=== PATIENT | female | born 1960 | race Caucasian/White ===

== ENCOUNTER → 2016-12-01 | Outpatient (CLI) | payer BC ==
[~2016-12-01] MED LIST: BUSPAR DIVIDOSE15 MG PO; BUSPAR10 MG PO; BYSTOLIC5 MG PO; CLARITIN 1010 MG/TAB PO; DIOVAN 40MG40 MG PO; FLEXERIL 1010 MG/TAB PO; FLEXERIL5 MG PO; MOTRIN 200200 MG/TAB PO; MOTRIN 600600 MG/TAB PO; MOTRIN 800800 MG/TAB PO; NORCO 325 MG-51 TAB PO; PROZAC 10MG10 MG PO; PROZAC 20MG20 MG PO; SARAFEM15 MG PO
== END ==
LOC: MC.RAD 15:43
DX: Z12.31 Encounter for screening mammogram for malignant neoplasm of breast (principal)

== ENCOUNTER 2017-03-17 13:53 | Emergency (ER) | payer BC ==
[~2017-03-17] VITALS: Ht 157.5 cm; Wt 59.1 kg
[~2017-03-17 13:53] MED LIST changes: -DIOVAN 40MG40 MG PO; -MOTRIN 600600 MG/TAB PO
[2017-03-17 14:00] VITALS: TEMP 98.4
[2017-03-17] MEDS ORDERED: DIOVAN 40MG40 MG PO (14:33)
[2017-03-17] MEDS ORDERED: MOTRIN 600600 MG/TAB PO (14:34)
[2017-03-17] MEDS ORDERED: NORCO 325 MG-51 TAB PO (17:43)
[2017-03-17 18:33] LABS: BASO % 0.5 % (0.0-2.0); EOS % 0.3 % (0-4.0); GRAN # 5.5 (1.4-6.5); GRAN % 69.2 % (42.2-75.2); HEMATOCRIT 39.8 % (37.0-47.0); HEMOGLOBIN 14.7 g/dl (12.5-16.0); LYMPH # 1.6 (1.2-3.4); LYMPH % 19.8 % (20.0-51.0); MEAN CELL VOLUME 97 fl (80.0-100.0); MEAN CORPUSCULAR HEMOGLOBIN 36 pg (27.0-31.0); MEAN CORPUSCULAR HGB CONC 37 g/dl (33.0-37.0); MEAN PLATELET VOLUME 9.3 fl (7.4-10.4); MONO # 0.8 (0.1-0.6); MONO % 9.8 % (1.7-9.3); PLATELET COUNT 240 K/mm3 (130-400); REDCELL DISTRIBUTION WIDTH-CV 11.8 % (11.5-14.5); WHITE BLOOD COUNT 7.9 K/mm3 (4.8-10.8)
[2017-03-17 18:40] VITALS: BP 128/64; PULSE 68
[2017-03-17 18:47] LABS: CALCIUM 8.6 mg/dL (8.4-10.2); CREATININE, serum 0.55 mg/dL (0.52-1.25); POTASSIUM 4.7 mmol/L (3.4-5.0)
== END 2017-03-17 18:40 | disposition home or self-care (01) ==
LOC: COL.ER 13:53
PROVIDERS: Emergency Medicine
DX: S52.592A Other fractures of lower end of left radius, initial encounter for closed fracture (principal); I10 Essential (primary) hypertension; F32.9 Major depressive disorder, single episode, unspecified; F41.9 Anxiety disorder, unspecified; W01.198A Fall on same level from slipping, tripping and stumbling with subsequent striking against other object, initial encounter; Y92.008 Other place in unspecified non-institutional (private) residence as the place of occurrence of the external cause; S29.9XXA Unspecified injury of thorax, initial encounter; R42 Dizziness and giddiness
CPT/HCPCS: J1170; J1885; J2405; J7030

== ENCOUNTER 2017-03-18 07:37 | Day surgery (SDC) | payer BC ==
[~2017-03-18] VITALS: Ht 157.5 cm; Wt 60.5 kg
[2017-03-18] VITALS (10 sets, daily range): BP systolic 89–131; BP diastolic 52–69; PULSE 63–76; TEMP 97.3–98
[~2017-03-18 07:37] MED LIST changes: +DIOVAN 40MG40 MG PO; +MOTRIN 600600 MG/TAB PO
[2017-03-18 09:21] LABS: ADJUSTED CALCIUM 8.7 mg/dL (8.4-10.2); ALBUMIN 4.1 gm/dL (3.5-5.0); BILIRUBIN,TOTAL 1.2 mg/dL (0.0-1.0); CALCIUM 8.8 mg/dL (8.4-10.2); CREATININE, serum 0.57 mg/dL (0.52-1.25)
[2017-03-18 09:37] LABS: HEMOGLOBIN 14.1 g/dl (12.5-16.0); MEAN CELL VOLUME 99 fl (80.0-100.0); MEAN CORPUSCULAR HEMOGLOBIN 35 pg (27.0-31.0); MEAN CORPUSCULAR HGB CONC 35 g/dl (33.0-37.0); RED BLOOD COUNT 4.03 M/mm3 (4.10-5.30); REDCELL DISTRIBUTION WIDTH-CV 11.9 % (11.5-14.5)
[2017-03-18 09:39] LABS: MEAN PLATELET VOLUME 10.3 fl (7.4-10.4); PLATELET COUNT 209 K/mm3 (130-400)
== END 2017-03-18 16:50 | disposition home or self-care (01) ==
LOC: SDCO 07:37 → SURG 07:37 → SDCO 16:50
PROVIDERS: Orthopaedic Surgery
DX: S52.502A Unspecified fracture of the lower end of left radius, initial encounter for closed fracture (principal); W01.0XXA Fall on same level from slipping, tripping and stumbling without subsequent striking against object, initial encounter; Y93.K1 Activity, walking an animal; I10 Essential (primary) hypertension; F41.8 Other specified anxiety disorders; F17.210 Nicotine dependence, cigarettes, uncomplicated
CPT/HCPCS: OP; C1713; J0670; J0690; J2250; J2405; J2704; J3010; J7120

== ENCOUNTER 2017-07-11 14:43 | Emergency (ER) | payer SELFPAY ==
[~2017-07-11] VITALS: Ht 157.5 cm; Wt 59.1 kg
[2017-07-11 14:45] VITALS: TEMP 98.3
[2017-07-11] MEDS ORDERED: NORVASC 5MG5 MG/TAB PO (16:41)
[2017-07-11 16:45] VITALS: BP 201/96; PULSE 69
== END 2017-07-11 16:50 | disposition home or self-care (01) ==
LOC: COL.ER 14:43
DX: S60.212A Contusion of left wrist, initial encounter (principal); I10 Essential (primary) hypertension; F17.210 Nicotine dependence, cigarettes, uncomplicated; Z98.890 Other specified postprocedural states; Z79.1 Long term (current) use of non-steroidal anti-inflammatories (NSAID); W01.0XXA Fall on same level from slipping, tripping and stumbling without subsequent striking against object, initial encounter

== ENCOUNTER 2017-07-18 22:11 | Emergency (ER) | payer SELFPAY ==
[~2017-07-18] VITALS: Ht 157.5 cm; Wt 58.1 kg
[~2017-07-18 22:11] MED LIST changes: +NORVASC 5MG5 MG/TAB PO
[2017-07-18 22:16] VITALS: BP 180/86; TEMP 98
[2017-07-18 23:57] LABS: BASO # 0.1 (0.0-0.2); BASO % 0.6 % (0.0-2.0); EOS # 0.2 (0.0-0.7); EOS % 2.3 % (0-4.0); GRAN # 5.7 (1.4-6.5); GRAN % 62.2 % (42.2-75.2); HEMATOCRIT 39.6 % (37.0-47.0); LYMPH # 2.2 (1.2-3.4); LYMPH % 23.7 % (20.0-51.0); MEAN CELL VOLUME 100 fl (80.0-100.0); MEAN CORPUSCULAR HEMOGLOBIN 35 pg (27.0-31.0); MEAN CORPUSCULAR HGB CONC 35 g/dl (33.0-37.0); MEAN PLATELET VOLUME 9.8 fl (7.4-10.4); MONO % 10.9 % (1.7-9.3); PLATELET COUNT 254 K/mm3 (130-400); RED BLOOD COUNT 3.96 M/mm3 (4.10-5.30); REDCELL DISTRIBUTION WIDTH-CV 11.5 % (11.5-14.5); WHITE BLOOD COUNT 9.1 K/mm3 (4.8-10.8)
[2017-07-19 00:08] LABS: ADJUSTED CALCIUM 9.2 mg/dL (8.4-10.2); ALANINE AMINOTRANSFERASE 25 U/L (9-52); ALKALINE PHOSPHATASE 92 U/L (50-136); ANION GAP 11 mmol/L (7-16); BILIRUBIN,TOTAL 0.4 mg/dL (0.0-1.0); BLOOD UREA NITROGEN 6 mg/dL (7-17); CALCIUM 9.2 mg/dL (8.4-10.2); CARBON DIOXIDE 28 mmol/L (22-30); CHLORIDE 98 mmol/L (98-107); CREATININE, serum 0.55 mg/dL (0.52-1.25); GLUCOSE 91 mg/dL (74-106); POTASSIUM 3.2 mmol/L (3.4-5.0); SODIUM 137 mmol/L (137-145); TOTAL PROTEIN 7.2 gm/dL (6.4-8.2)
[2017-07-19 00:19] LABS: TROPONIN-I < 0.012 ng/mL (0.000-0.034)
[2017-07-19 02:21] VITALS: PULSE 80
== END 2017-07-19 01:39 | disposition home or self-care (01) ==
LOC: COL.ER 22:11
PROVIDERS: Nurse Practitioner
DX: R07.89 Other chest pain (principal); R07.1 Chest pain on breathing; I10 Essential (primary) hypertension; F41.9 Anxiety disorder, unspecified; G43.909 Migraine, unspecified, not intractable, without status migrainosus; F17.210 Nicotine dependence, cigarettes, uncomplicated; Z91.81 History of falling; E87.6 Hypokalemia

== ENCOUNTER 2017-08-01 21:22 | Inpatient (IN) | payer OTHER ==
[~2017-08-01] VITALS: Ht 157.5 cm; Wt 55.6 kg
[2017-08-01 22:03] LABS: COLLECTION METHOD CLEAN CATCH
[2017-08-01 22:06] LABS: ADJUSTED CALCIUM 8.5 mg/dL (8.4-10.2); ALANINE AMINOTRANSFERASE 31 U/L (9-52); ALKALINE PHOSPHATASE 87 U/L (50-136); ANION GAP 10 mmol/L (7-16); BILIRUBIN,TOTAL 0.9 mg/dL (0.0-1.0); BLOOD UREA NITROGEN 7 mg/dL (7-17); CALCIUM 8.5 mg/dL (8.4-10.2); CARBON DIOXIDE 32 mmol/L (22-30); CREATININE, serum 0.59 mg/dL (0.52-1.25); GLUCOSE 105 mg/dL (74-106); LIPASE 293 U/L (23-300); MAGNESIUM 1.1 mg/dL (1.6-2.3); PHOSPHOROUS 2.9 mg/dL (2.5-4.5)
[2017-08-01 22:09] LABS: C-REACTIVE PROTEIN < 0.5 mg/dL (0.0-0.9)
[2017-08-01 22:10] LABS: POTASSIUM 2.3 mmol/L (3.4-5.0); SODIUM 111 mmol/L (137-145)
[2017-08-01 22:11] LABS: CHLORIDE 70 mmol/L (98-107)
[2017-08-01 22:13] LABS: BASO % 0.5 % (0.0-2.0); EOS # 0.1 (0.0-0.7); EOS % 1.2 % (0-4.0); GRAN # 3.7 (1.4-6.5); GRAN % 55.3 % (42.2-75.2); HEMATOCRIT 37.3 % (37.0-47.0); HEMOGLOBIN 13.9 g/dl (12.5-16.0); LYMPH % 30.3 % (20.0-51.0); MEAN CELL VOLUME 92 fl (80.0-100.0); MEAN CORPUSCULAR HEMOGLOBIN 34 pg (27.0-31.0); MEAN CORPUSCULAR HGB CONC 37 g/dl (33.0-37.0); MEAN PLATELET VOLUME 9.3 fl (7.4-10.4); MONO # 0.8 (0.1-0.6); MONO % 12.5 % (1.7-9.3); PLATELET COUNT 244 K/mm3 (130-400); RED BLOOD COUNT 4.06 M/mm3 (4.10-5.30); WHITE BLOOD COUNT 6.6 K/mm3 (4.8-10.8)
[2017-08-01 22:13] LABS: PH 7 (5-8); URINE APPEARANCE Clear; URINE BACTERIA Rare /hpf; URINE BILIRUBIN Negative (NEGATIVE); URINE BLOOD Negative (NEGATIVE); URINE COLOR Yellow; URINE GLUCOSE Negative (NEGATIVE); URINE KETONE Negative (NEGATIVE); URINE LEUKOCYTE ESTERASE Negative (NEGATIVE); URINE PROTEIN(semi-quant) Negative (NEGATIVE); URINE RBC 0-2 /hpf; URINE UROBILINOGEN Negative (NEGATIVE); URINE WBC 0-2 /hpf
[2017-08-01 22:17] LABS: TROPONIN-I < 0.012 ng/mL (0.000-0.034)
[2017-08-01 23:52] LABS: CALCIUM 8.3 mg/dL (8.4-10.2); CREATININE, serum 0.57 mg/dL (0.52-1.25)
[2017-08-02 00:11] LABS: POTASSIUM 2.8 mmol/L (3.4-5.0)
[2017-08-02 01:00] VITALS: BP 121/77; PULSE 62; TEMP 97.5
[2017-08-02 01:04] LABS: B-TYPE NATRIURETIC PEPTIDE 164 pg/mL (0-125)
[2017-08-02 01:49] VITALS: BP 121/77; PULSE 62; TEMP 97.5
[2017-08-02 04:00] VITALS: BP 95/53; PULSE 60; TEMP 98
[2017-08-02 04:55] LABS: BASO % 0.3 % (0.0-2.0); EOS # 0.1 (0.0-0.7); EOS % 1.3 % (0-4.0); GRAN # 3.3 (1.4-6.5); GRAN % 48.6 % (42.2-75.2); HEMOGLOBIN 13.8 g/dl (12.5-16.0); LYMPH # 2.2 (1.2-3.4); LYMPH % 32.3 % (20.0-51.0); MEAN CELL VOLUME 92 fl (80.0-100.0); MEAN CORPUSCULAR HEMOGLOBIN 34 pg (27.0-31.0); MEAN CORPUSCULAR HGB CONC 38 g/dl (33.0-37.0); MEAN PLATELET VOLUME 9.6 fl (7.4-10.4); MONO # 1.2 (0.1-0.6); MONO % 17.1 % (1.7-9.3); PLATELET COUNT 239 K/mm3 (130-400); RED BLOOD COUNT 4.01 M/mm3 (4.10-5.30); WHITE BLOOD COUNT 6.8 K/mm3 (4.8-10.8)
[2017-08-02 04:56] LABS: HEMATOCRIT 36.8 % (37.0-47.0)
[2017-08-02 05:06] LABS: CALCIUM 8.8 mg/dL (8.4-10.2); CREATININE, serum 0.57 mg/dL (0.52-1.25); POTASSIUM 4.1 mmol/L (3.4-5.0)
[2017-08-02 05:37] LABS: MAGNESIUM 1.8 mg/dL (1.6-2.3)
[2017-08-02 07:57] VITALS: BP 101/64; PULSE 61; TEMP 97
[2017-08-02 08:24] LABS: CALCIUM 8.7 mg/dL (8.4-10.2); CREATININE, serum 0.55 mg/dL (0.52-1.25); POTASSIUM 3.5 mmol/L (3.4-5.0)
[2017-08-02 12:17] VITALS: BP 118/78; PULSE 66; TEMP 98
[2017-08-02 12:43] LABS: CALCIUM 8.8 mg/dL (8.4-10.2); CREATININE, serum 0.61 mg/dL (0.52-1.25)
[2017-08-02 18:46] LABS: CALCIUM 8.6 mg/dL (8.4-10.2); CREATININE, serum 0.58 mg/dL (0.52-1.25)
[2017-08-02 18:49] LABS: POTASSIUM 2.9 mmol/L (3.4-5.0)
[2017-08-02 20:00] VITALS: BP 104/58; PULSE 72; TEMP 98.1
[2017-08-02 21:28] LABS: CALCIUM 8.3 mg/dL (8.4-10.2); CREATININE, serum 0.59 mg/dL (0.52-1.25); POTASSIUM 3.6 mmol/L (3.4-5.0)
[2017-08-03] VITALS: BP 118/66; PULSE 71; TEMP 98.6
[2017-08-03 01:41] LABS: CALCIUM 8.2 mg/dL (8.4-10.2); CREATININE, serum 0.56 mg/dL (0.52-1.25); POTASSIUM 3.9 mmol/L (3.4-5.0)
[2017-08-03 02:30] LABS: THYROID STIMULATING HORMONE 1.3 uIU/mL (0.465-4.680)
[2017-08-03 04:00] VITALS: BP 106/60; PULSE 69; TEMP 97.4
[2017-08-03 05:47] LABS: BASO % 0.7 % (0.0-2.0); EOS # 0.1 (0.0-0.7); EOS % 1.4 % (0-4.0); GRAN # 2.3 (1.4-6.5); GRAN % 40.4 % (42.2-75.2); HEMOGLOBIN 12.3 g/dl (12.5-16.0); LYMPH # 2.4 (1.2-3.4); MEAN CORPUSCULAR HEMOGLOBIN 35 pg (27.0-31.0); MEAN CORPUSCULAR HGB CONC 36 g/dl (33.0-37.0); MEAN PLATELET VOLUME 10.7 fl (7.4-10.4); MONO # 0.9 (0.1-0.6); MONO % 16.3 % (1.7-9.3); PLATELET COUNT 192 K/mm3 (130-400); WHITE BLOOD COUNT 5.8 K/mm3 (4.8-10.8)
[2017-08-03 05:51] LABS: HEMATOCRIT 34.1 % (37.0-47.0); MEAN CELL VOLUME 97 fl (80.0-100.0)
[2017-08-03 06:00] LABS: CALCIUM 8.3 mg/dL (8.4-10.2); CREATININE, serum 0.51 mg/dL (0.52-1.25); POTASSIUM 3.7 mmol/L (3.4-5.0)
[2017-08-03 08:00] VITALS: BP 106/57; PULSE 78; TEMP 98
[2017-08-03 13:20] LABS: CALCIUM 8.6 mg/dL (8.4-10.2); CREATININE, serum 0.54 mg/dL (0.52-1.25); POTASSIUM 4.2 mmol/L (3.4-5.0)
[2017-08-03 13:50] LABS: THYROID STIMULATING HORMONE 1.22 uIU/mL (0.465-4.680)
[2017-08-03 16:16] VITALS: BP 100/61; PULSE 70; TEMP 97.9
[2017-08-03 20:17] VITALS: BP 130/70; PULSE 79; TEMP 98
[2017-08-04 00:16] VITALS: BP 127/62; PULSE 76; TEMP 97.5
[2017-08-04 03:57] VITALS: BP 130/67; PULSE 76; TEMP 97.9
[2017-08-04 07:54] VITALS: BP 146/69; PULSE 63; TEMP 97.9
[2017-08-04 08:57] LABS: CALCIUM 8.4 mg/dL (8.4-10.2); CREATININE, serum 0.55 mg/dL (0.52-1.25); MAGNESIUM 1.3 mg/dL (1.6-2.3); POTASSIUM 4.7 mmol/L (3.4-5.0)
[2017-08-04 12:41] VITALS: BP 120/62; PULSE 65; TEMP 97.7
[2017-08-04 15:10] VITALS: BP 128/71; PULSE 73; TEMP 98.9
[2017-08-04 19:13] VITALS: BP 142/76; PULSE 73; TEMP 97
[2017-08-05 00:17] VITALS: BP 137/68; PULSE 73; TEMP 98.1
[2017-08-05 04:00] VITALS: BP 116/61; PULSE 64; TEMP 98.2
[2017-08-05 08:17] VITALS: BP 142/71; PULSE 71; TEMP 97.9
[2017-08-05 09:28] LABS: CALCIUM 8.4 mg/dL (8.4-10.2); CREATININE, serum 0.57 mg/dL (0.52-1.25); MAGNESIUM 1.6 mg/dL (1.6-2.3)
[2017-08-05] MEDS ORDERED: MAG-OX 400400 MG/TAB PO (09:50)
[2017-08-05] MEDS ORDERED: TYLENOL 325MG325 MG PO (09:50)
[2017-08-05] MEDS ORDERED: PROAIR HFA0.09 MG/AC IH (09:52)
[2017-08-05] MEDS ORDERED: NICODERM C21 MG/PATC TD (10:09)
[2017-08-05 13:11] VITALS: BP 126/64; PULSE 73; TEMP 97.7
== END 2017-08-05 15:45 | disposition home or self-care (01) | DRG 641 ==
LOC: COL.ER 21:22 → MEDICAL 23:15 → ICU 23:15 → MEDICAL 08-03 15:38
PROVIDERS: Emergency Medicine; Internal Medicine; Nurse Practitioner Family
DX: E86.1 Hypovolemia (principal); J44.1 Chronic obstructive pulmonary disease with (acute) exacerbation; E44.0 Moderate protein-calorie malnutrition; E87.1 Hypo-osmolality and hyponatremia; I10 Essential (primary) hypertension; E87.6 Hypokalemia; E83.42 Hypomagnesemia; E87.8 Other disorders of electrolyte and fluid balance, not elsewhere classified; I45.81 Long QT syndrome; F17.210 Nicotine dependence, cigarettes, uncomplicated; Z68.22 Body mass index [BMI] 22.0-22.9, adult
CPT/HCPCS: 99223-AI; 99232-AI; 99233-AI; 99239; A9585; J3475; J3480; J7030